=== PATIENT | female | born 1980 | race Caucasian/White ===

== ENCOUNTER 2016-05-24 20:43 | Emergency (ER) | payer OTHER ==
[~2016-05-24 20:43] MED LIST: BACTRIM DS TABL1 TA1 PO; IBUPROFEN PO; LORTAB 7.5-5001 TAB PO; PAXIL PO; PRENATAL MULITV1 TAB PO; ROBITUSSIN ALL118 ML PO; SEROQUEL PO; ULTRAM PO; VIBRAMYCIN100 M1 PO; ZITHROMAX PO
== END 2016-05-24 21:08 | disposition home or self-care (01) ==
LOC: CFTX 20:43
DX: R20.2 Paresthesia of skin (principal); F31.9 Bipolar disorder, unspecified; F17.210 Nicotine dependence, cigarettes, uncomplicated; Z87.442 Personal history of urinary calculi
CPT/HCPCS: 96372; 99283; J1885

== ENCOUNTER 2016-11-10 22:39 | Emergency (ER) | payer OTHER ==
[~2016-11-10] VITALS: Ht 165.1 cm; Wt 54.4 kg
== END 2016-11-11 | disposition home or self-care (01) ==
LOC: CED 22:39
DX: J01.90 Acute sinusitis, unspecified (principal); F31.9 Bipolar disorder, unspecified; F17.200 Nicotine dependence, unspecified, uncomplicated
CPT/HCPCS: 99283